=== PATIENT | male | born 1985 ===

== ENCOUNTER 2023-02-21 23:15 | Emergency (ER) | payer MEDICAID ==
[~2023-02-21] VITALS: Ht 167.6 cm; Wt 52.0 kg
[2023-02-21 23:35] VITALS: BP 139/86; PULSE 147; RESP 18; TEMP 97; O2SAT 94
[2023-02-21] MEDS ORDERED: acetaminophen 325mg tablet PO ONE (23:50)
[2023-02-21] MEDS ORDERED: olanzapine 10mg tablet PO SCH (23:50)
== END 2023-02-22 02:29 | disposition left against medical advice (07) ==
LOC: ER 23:17
DX: G89.29 Other chronic pain (principal); M54.9 Dorsalgia, unspecified
CPT/HCPCS: 99283